=== PATIENT | female | born 1980 | race Caucasian/White ===

== ENCOUNTER 2017-11-11 11:27 | Emergency (ER) | payer OTHER ==
[2017-11-11 12:14] LABS: #Eosinphils 0.1 thou/uL (0.0-0.7); #Lymphocytes 1.2 thou/uL (1.20-3.40); #Monocytes 0.3 thou/uL (0.11-0.59); #Neutrophils 7.3 thou/uL (1.40-6.50); %Basophils 0.3 % (0.0-1.0); %Eosinophils 0.6 % (0.0-10.0); %Lymphocytes 13.2 % (21.0-51.0); %Monocytes 3.3 % (0.0-10.0); %Neutrophils 82.7 % (42.0-75.0); Hemoglobin 12.9 g/dL (12.0-16.0); Mean Corpuscular HGB CONC 32.6 g/dL (32.0-36.0); Mean Corpuscular Hemoglobin 29.1 pg (27.0-31.0); Mean Corpuscular Volume 89.4 fl (81.0-99.0); Mean Platelet Volume 8.4 fL (7.4-10.4); Platelet Count 204 thou/uL (130-400); RBC Distribution Width 12.4 % (11.5-14.5); Red Blood Cell (RBC) Count 4.41 mill/uL (4.20-5.40); White Blood Cell (WBC) Count 8.8 thou/uL (4.8-10.8)
[2017-11-11 12:38] LABS: ALT (SGPT) 13 U/L (8-55); AST (SGOT) 17 U/L (5-34); Albumin 3.8 g/dL (3.5-5.0); Alkaline Phosphatase 89 U/L (40-150); Anion Gap 11 mmol/L (10-20); BUN (Urea Nitrogen) 6 mg/dL (7.0-18.7); Bilirubin, Total 0.2 mg/dL (0.2-1.2); Calc. Creatinine Clearance 0 mL/min (70-130); Calcium 8.9 mg/dL (7.8-10.44); Carbon Dioxide 23 mmol/L (22-29); Chloride 104 mmol/L (98-107); Estimated GFR-MDRD 90; Globulin 3.2 g/dL (2.4-3.5); Glucose 120 mg/dL (70-105); Potassium 4.1 mmol/L (3.5-5.1); Sodium 134 mmol/L (136-145)
[2017-11-11 12:39] LABS: Acetaminophen Less than 6.0 mcg/mL (10.0-30.0); Alcohol Less than 10 mg/dL (Less than 10); Salicylate Less than 8.0 mg/dL (15.0-30.0)
[2017-11-11 14:45] LABS: Bilirubin Negative (Negative); Blood, Urine Moderate (Negative); Clarity CLEAR (Clear); Glucose, Urine (Dipstick) Negative (Negative); Leukocyte Trace (Negative); Nitrite Negative (Negative); Protein, Urine (Dipstick) Negative (Neg-Trace); Specific Gravity, Urine 1.008 (1.002-1.036); Urobilinogen 0.2 mg/dL (0.2-1.0); pH, Urine 6.5 (5.0-9.0)
[2017-11-11 14:46] LABS: Pregnancy Test - Urine (BHCG) Negative (Negative); Pregu Control Bar Appear? YES (CONTROL BAR); Specific Gravity 1.008 (1.002-1.036)
[2017-11-11 14:47] LABS: Bacteria/HPF None Seen HPF (None Seen); Hyaline Casts/LPF 0-3 HYALINE CAST LPF (0-3 Hyaline); Pregu Control Background? CLEAR/WHITE (CLR/WHITE); RBC/HPF 0-3 HPF (0-3); Squamous Epithelial 0-3 HPF (0-3); WBC/HPF 0-3 HPF (0-3)
[2017-11-11 14:50] LABS: Amphetamine Not Detected (NotDetected); Barbiturates Screen Not Detected (NotDetected); Benzodiazepine Screen Not Detected (NotDetected); Cocaine Metabolite Screen Not Detected (NotDetected); Medtox Control Line Valid? VALID (VALID); Medtox Reader # READER 4; Methadone Not Detected (NotDetected); Methamphetamine Not Detected (NotDetected); Opiate Screen Not Detected (NotDetected); Oxycodone Screen Not Detected (NotDetected); Phencyclidine (PCP) Not Detected (NotDetected); THC/Cannabinoid Screen Not Detected (NotDetected); Tricyclic Screen Not Detected (NotDetected)
[2017-11-11] MEDS ORDERED: Acetaminophen 500 MG TAB ONE (20:35)
--- NOTE | 2017-11-23 19:59 | EKG ---
Test Reason : Blood Pressure : / mmHG Vent. Rate : 099 BPM Atrial Rate : 099 BPM P-R Int : 122 ms QRS Dur : 084 ms QT Int : 364 ms P-R-T Axes : 027 -10 -09 degrees QTc Int : 467 ms Sinus rhythm with Premature supraventricular complexes Minimal voltage criteria for LVH, may be normal variant Cannot rule out Anterior infarct , age undetermined Abnormal ECG Confirmed by ARIES RECIO, JAE Downs ([id number]), makeup editor TRINITY MEYER ([id number]) on 11/23/2017 7:59:28 PM Referred By: Confirmed By:JAE CHRIS MD
== END 2017-11-12 12:36 ==
LOC: ERS 11:27
DX: T43.212A Poisoning by selective serotonin and norepinephrine reuptake inhibitors, intentional self-harm, initial encounter (principal); F32.9 Major depressive disorder, single episode, unspecified; F41.9 Anxiety disorder, unspecified; Z79.899 Other long term (current) drug therapy
CPT/HCPCS: 36415; 80053; 80306; 80307; 81003; 81015; 81025; 84443; 85025; 93005

== ENCOUNTER 2019-08-10 11:27 | Emergency (ER) | payer OTHER ==
[2019-08-10] MEDS ORDERED: HYDROcodone/Acetaminophen 10/325 mg Tablet ONE (12:54)
--- NOTE | 2019-08-10 15:11 | RAD ---
RIGHT KNEE 4 VIEWS: Date: 08/10/19 HISTORY: Right knee pain. FINDINGS/IMPRESSION: No fracture, dislocation, or bony destruction seen. If there is concern for internal derangement, further evaluation with MRI would be helpful. POS: [facility]
== END 2019-08-10 15:51 | disposition home or self-care (01) ==
LOC: ERS 11:27
DX: M79.81 Nontraumatic hematoma of soft tissue (principal); F32.9 Major depressive disorder, single episode, unspecified; Z79.899 Other long term (current) drug therapy

== ENCOUNTER 2019-11-05 17:08 | Emergency (ER) | payer OTHER ==
[2019-11-05] MEDS ORDERED: HYDROcodone/Acetaminophen 10/325 mg Tablet ONE (17:57)
--- NOTE | 2019-11-05 18:15 | RAD ---
FOUR VIEWS RIGHT KNEE 11/05/19 HISTORY: Right knee pain. Joint pain right knee. FINDINGS: There is no evidence of a fracture, dislocation, or other osseous abnormality. Views of the right kne e are stable compared to prior study on 08/10/19. IMPRESSION: No acute osseous abnormality. If there is concern for internal derangement, MRI right knee can be pe rformed for further evaluation. POS: [facility]
[2019-11-05] MEDS ORDERED: Ketorolac Tromethamine 30 MG/ML VIAL ONE (18:45)
== END 2019-11-05 18:53 | disposition home or self-care (01) ==
LOC: ERS 17:08
DX: M25.461 Effusion, right knee (principal); F41.9 Anxiety disorder, unspecified; F31.9 Bipolar disorder, unspecified
CPT/HCPCS: 96372; J1885

== ENCOUNTER 2020-08-11 23:56 | Emergency (ER) | payer BC, OTHER ==
[2020-08-12] MEDS ORDERED: Diazepam 5 MG TAB ONE (00:48)
[2020-08-12] MEDS ORDERED: Lidocaine 1% (PF) 30 ML VIAL ONE (00:48)
[2020-08-12] MEDS ORDERED: Ketorolac Tromethamine 30 MG/ML VIAL ONE (00:48)
[2020-08-12] MEDS ORDERED: Bupivacaine 0.5% 10 ML VIAL ONE (00:49)
[2020-08-12] MEDS ORDERED: Morphine 4 MG/ML VIAL ONE (01:27)
--- NOTE | 2020-08-12 07:50 | RAD ---
XR Knee Rt 4 View STANDARD History: Unstable knee Comparison: Radiograph November 05, 2019 Findings: No significant joint effusion. No acute displaced fracture or malalignment. Rather prominen t osteophyte of the medial margin lateral femoral condyle at the intercondylar notch. Impression: 1. No acute fracture or malalignment. 2. No significant joint effusion suggesting acute internal derangement.
== END 2020-08-12 01:34 | disposition home or self-care (01) ==
LOC: ERS 23:56
DX: S83.004A Unspecified dislocation of right patella, initial encounter (principal); F41.9 Anxiety disorder, unspecified; Z79.899 Other long term (current) drug therapy; X58.XXXA Exposure to other specified factors, initial encounter
CPT/HCPCS: 20552; 27560; 96372; J1885; J2001; J2270; J3490

== ENCOUNTER 2021-10-25 11:25 | Emergency (ER) | payer BC | END 2021-10-25 14:43 | disposition left against medical advice (07) | LOC: ERS 11:25 | DX: Z53.21 Procedure and treatment not carried out due to patient leaving prior to being seen by health care provider (principal) ==

== ENCOUNTER 2023-07-15 11:57 | Emergency (ER) | payer BC, SELFPAY ==
[2023-07-15 12:59] LABS: #Eosinphils 0.1 thou/uL (0.0-0.7); #Monocytes 0.2 thou/uL (0.11-0.59); #Neutrophils 11.1 thou/uL (1.40-6.50); %Basophils 0.3 % (0.0-1.0); %Eosinophils 0.7 % (0.0-10.0); %Lymphocytes 6.7 % (21.0-51.0); %Monocytes 1.2 % (0.0-10.0); %Neutrophils 90.6 % (42.0-75.0); Hematocrit 34.2 % (36.0-47.0); Hemoglobin 11.4 g/dL (12.0-16.0); Mean Corpuscular HGB CONC 33.3 g/dL (32.0-36.0); Mean Corpuscular Volume 80.9 fl (78.0-98.0); Mean Platelet Volume 10.7 fL (7.4-10.4); Platelet Count 269 10x3/uL (130-400); RBC Distribution Width 16.1 % (11.5-14.5); Red Blood Cell (RBC) Count 4.23 mill/uL (4.20-5.40); White Blood Cell (WBC) Count 12.3 10x3/uL (4.8-10.8)
[2023-07-15 13:27] LABS: ALT (SGPT) 54 U/L (8-55); AST (SGOT) 33 U/L (5-34); Alkaline Phosphatase 93 U/L (40-110); Anion Gap 16 mmol/L (10-20); BUN (Urea Nitrogen) 10 mg/dL (7.0-18.7); Bilirubin, Total 0.4 mg/dL (0.2-1.2); Calc. Creatinine Clearance 0 mL/min (70-130); Calcium 8.9 mg/dL (7.8-10.44); Carbon Dioxide 22 mmol/L (22-29); Chloride 106 mmol/L (98-107); Estimated GFR 86; Glucose 112 mg/dL (70-105); Potassium 3.7 mmol/L (3.5-5.1); Sodium 140 mmol/L (136-145)
== END 2023-07-15 14:54 | disposition home or self-care (01) ==
LOC: ERS 11:57
DX: R55 Syncope and collapse (principal); K62.5 Hemorrhage of anus and rectum
CPT/HCPCS: 80053; 85025; 86850; 86900; 86901; 93005; 96360